=== PATIENT | female | born 1985 | race Caucasian/White ===

== ENCOUNTER 2018-07-01 21:57 | Emergency (ER) | payer MEDICAID, SELFPAY ==
[~2018-07-01] VITALS: Ht 167.6 cm; Wt 81.8 kg
[2018-07-01 21:59] VITALS: BP 229/158
--- NOTE | 2018-07-01 22:38 | NUR ---
Fahad corbin in EDM - 07/01/18 at 2238 by ANGELIQUE PA INTO TRIAGE FOR PIT. PT REFUSING POC. PT REFUSED TO SIGN AMA FORM. PT GONE.
--- NOTE | 2018-07-01 22:39 | NUR ---
PA INTO TRIAGE FOR PIT. PT REFUSING POC. PT REFUSED TO SIGN AMA FORM. PT GONE.
== END 2018-07-01 22:40 | disposition left against medical advice (07) ==
LOC: ED 22:30
DX: K02.9 Dental caries, unspecified (principal); I10 Essential (primary) hypertension
CPT/HCPCS: 93005; 99283